=== PATIENT | female | born 1970 | race Two or more races ===

== ENCOUNTER 2017-09-01 11:38 | Emergency (ER) | payer OTHER ==
[2017-09-01 14:30] VITALS: BP 130/85
== END 2017-09-01 16:21 | disposition home or self-care (01) ==
LOC: ED 11:38 → EDBD 11:38 → ED 16:21
DX: S39.012A Strain of muscle, fascia and tendon of lower back, initial encounter (principal); S29.012A Strain of muscle and tendon of back wall of thorax, initial encounter; R07.89 Other chest pain; Z85.3 Personal history of malignant neoplasm of breast; W22.8XXA Striking against or struck by other objects, initial encounter; Y93.89 Activity, other specified; Y92.89 Other specified places as the place of occurrence of the external cause; Y99.8 Other external cause status
CPT/HCPCS: 72072